=== PATIENT | female | born 1940 | race Asian ===

== ENCOUNTER 2019-01-02 22:34 | Emergency (ER) | payer MEDICARE, OTHER ==
[~2019-01-02] VITALS: Ht 157.5 cm; Wt 46.9 kg
[2019-01-02 22:42] VITALS: Ht 157.5 cm; Wt 46.9 kg
--- NOTE | 2019-01-03 01:04 | ERD ---
ER Documentation Chief Complaint Chief Complaint LUQ pain [id number] with nausea HPI This is a 78-year-old female with a history of hypertension who presents to the emergency room for evaluation of left flank pain for the past 6 months. According to the daughter the patient has had intermittent pain on and off for 6 months however it is worse today. She has some associated nausea but no vomiting and no diarrhea. There is no fever chills painful urination or frequent urination associated with this. The patient came to the ER for evaluation. ROS All systems reviewed and are negative except as per history of present illness. PMhx/Soc History of Surgery: Yes (CHOLECYSTECTOMY) Anesthesia Reaction: No Hx Neurological Disorder: No Hx Respiratory Disorders: No Hx Cardiac Disorders: Yes (HTN) Hx Psychiatric Problems: No Hx Miscellaneous Medical Probl: No Hx Alcohol Use: No Hx Substance Use: No Hx Tobacco Use: No Smoking Status: Never smoker Physical Exam Vitals Vital Signs Date Temp Pulse Resp B/P (MAP) Pulse Ox O2 O2 Flow FiO2 Time Delivery Rate 01/02/19 72 14 161/72 98 Room Air 23:45 (101) 01/02/19 97.1 75 20 172/81 99 22:42 (111) Physical Exam INITIAL VITAL SIGNS: Reviewed by me GENERAL: The patient is well developed and appropriate for usual state of health in no apparent distress HEENT: Pupils equal, round, and reactive to light. EOMI. There is no scleral icterus. NECK: C-spine is soft and supple, there is no meningismus. There is no cervical lymphadenopathy. LUNGS: Clear to auscultation bilaterally. There are no rales, wheezes or rhonchi. HEART: Regular rate and rhythm, no murmurs, clicks, rubs or gallops. ABDOMEN: Mild left-sided CVAT, otherwise soft, non-tender, non-distended. There are bowel sounds in all four quadrants. No rebound or guarding. EXTREMITIES: There is no peripheral cyanosis or edema. No focal swelling or erythema. NEUROLOGICAL: The patient moves all four extremities with 5/5 strength. Cranial nerves II - XII are intact. Normal gait. Alert and oriented SKIN: There is no apparent rash or petechiae. HEME/LYMPHATIC: There is no evidence of excessive bruising or lymphedema. PSYCHIATRIC: The patient does not appear anxious or depressed. Result Diagram: 01/02/19 2348 01/02/19 2348 Results 24 hrs Laboratory Tests Test 01/02/19 23:48 01/02/19 23:59 White Blood Count 6.2 10^3/ul Red Blood Count 4.16 10^6/ul Hemoglobin 12.5 g/dl Hematocrit 38.6 % Mean Corpuscular Volume 92.8 fl Mean Corpuscular Hemoglobin 30.0 pg Mean Corpuscular Hemoglobin Concent 32.4 g/dl Red Cell Distribution Width 12.4 % Platelet Count 215 10^3/UL Mean Platelet Volume 10.2 fl Immature Granulocytes % 0.200 % Neutrophils % 45.3 % Lymphocytes % 40.4 % Monocytes % 9.0 % Eosinophils % 4.5 % Basophils % 0.6 % Nucleated Red Blood Cells % 0.0 /100WBC Immature Granulocytes # 0.010 10^3/ul Neutrophils # 2.8 10^3/ul Lymphocytes # 2.5 10^3/ul Monocytes # 0.6 10^3/ul Eosinophils # 0.3 10^3/ul Basophils # 0.0 10^3/ul Nucleated Red Blood Cells # 0.0 10^3/ul Sodium Level 141 mmol/L Potassium Level 4.1 mmol/L Chloride Level 102 mmol/L Carbon Dioxide Level 29 mmol/L Anion Gap 10 Blood Urea Nitrogen 16 mg/dl Creatinine 0.85 mg/dl Est Glomerular Filtrat Rate mL/min mL/min Glucose Level 107 mg/dl Calcium Level 9.4 mg/dl Total Bilirubin 0.2 mg/dl Direct Bilirubin 0.00 mg/dl Indirect Bilirubin 0.2 mg/dl Aspartate Amino Transf (AST/SGOT) 28 IU/L Alanine Aminotransferase (ALT/SGPT) 21 IU/L Alkaline Phosphatase 35 IU/L Total Protein 8.3 g/dl Albumin 4.5 g/dl Globulin 3.80 g/dl Albumin/Globulin Ratio 1.18 Lipase 83 U/L Urine Color STRAW Urine Clarity CLEAR Urine pH 8.0 Urine Specific [place] 1.005 Urine Ketones NEGATIVE mg/dL Urine Nitrite NEGATIVE mg/dL Urine Bilirubin NEGATIVE mg/dL Urine Urobilinogen NEGATIVE mg/dL Urine Leukocyte Esterase NEGATIVE Shanna/ul Urine Hemoglobin NEGATIVE mg/dL Urine Glucose NEGATIVE mg/dL Urine Total Protein NEGATIVE mg/dl Procedures/MDM CT abdomen pelvis without contrast: Subtle infiltration of the central small bowel mesentery with minimal associated mesenteric lymphadenopathy. This is nonspecific, but might reflect a reactive process related to an adjacent enteritis, a panniculitis, or possibly lymphedema related to a neoplastic process such as lymphoma. Status post cholecystectomy. No obstructive uropathy or urinary stone. Normal appendix. Multiple right ovarian cysts measuring up to 2.8 cm. Further evaluation with ultrasound is recommended. Moderate atherosclerotic calcifications. This 78-year-old female presents to the ER for evaluation of left flank pain. On my exam she is afebrile and nontoxic-appearing. She did have mild tenderness to palpation and lab work was obtained as well as a CT. Lab work is clear, urine is clear, CT does show some lymphadenopathy which is nonspecific. The patient does not have any signs of infectious colitis. The patient will be given medicines to control her pain and she was given a copy of her CAT scan finding and was advised to follow-up with gastroenterology for possible colonoscopy if her symptoms continue. Differential diagnoses entertained was broad with potential high acuity. Patient has been evaluated for appendicitis, cholecystitis, and other high risk medical and surgical causes of abdominal pain. Ultimately the patient's evaluation is nondiagnostic. Based on the patient's lack of risk factors, as well as the patient's clinical, laboratory, and imaging data, the patient appears to be low risk for these high risk causes of abdominal pain. Departure Diagnosis: Primary Impression: Abdominal pain Additional Impression: Enteritis Condition: THEO Shipman DO Jan 03, 2019 01:04
[2019-01-03] MEDS ORDERED: ACET1TAB40 PO (01:05)
[2019-01-03 01:10] VITALS: BP 133/67; PULSE 67; RESP 18
== END 2019-01-03 01:24 | disposition home or self-care (01) ==
LOC: E/R 22:34
DX: K52.9 Noninfective gastroenteritis and colitis, unspecified (principal); I10 Essential (primary) hypertension
CPT/HCPCS: 36415; 74176; 80053; 81003; 83690; 85025

== ENCOUNTER 2019-02-18 12:58 | Emergency (ER) | payer MEDICARE, OTHER ==
[~2019-02-18] VITALS: Ht 162.6 cm; Wt 65.0 kg
[~2019-02-18 12:58] MED LIST: ACET1TAB40 PO; ACET500C5 PO; ALEN70TA5 ORAL; AMLO-147 ORAL; ATOR10TA65 PO; LACT10SO53 ORAL; LIDO700A45 TD; PANT40TA4 ORAL; PRAV20TA2 ORAL
[2019-02-18 13:09] VITALS: Ht 162.6 cm; Wt 65.0 kg
[2019-02-18] MEDS ORDERED: ACETAMINOPHEN 500 MG TAB PO STA (14:19)
[2019-02-18 14:45] VITALS: BP 142/56; PULSE 75; RESP 16
== END 2019-02-18 14:46 | disposition home or self-care (01) ==
LOC: E/R 12:58
DX: S00.83XA Contusion of other part of head, initial encounter (principal); I10 Essential (primary) hypertension; S29.001A Unspecified injury of muscle and tendon of front wall of thorax, initial encounter; V49.50XA Passenger injured in collision with unspecified motor vehicles in traffic accident, initial encounter
CPT/HCPCS: 70450; 71045

== ENCOUNTER 2019-02-20 18:40 | Inpatient (IN) | payer MEDICARE, OTHER ==
[~2019-02-20] VITALS: Ht 147.3 cm; Wt 46.7 kg
[~2019-02-20 18:40] MED LIST changes: -ACET1TAB40 PO; -ACET500C5 PO
[2019-02-20] MEDS ORDERED: ONDANSETRON 4 MG INJ IV STA ×2 (19:23→21:26)
[2019-02-20] MEDS ORDERED: morphine 4 MG/ML VIAL IV STA ×2 (19:23→21:26)
[2019-02-20] MEDS ORDERED: SOD CHLORIDE 0.9% 100 ML ONE (20:32)
[2019-02-20] MEDS ORDERED: IOHEXOL 100 ML ONE (20:32)
[2019-02-20] MEDS ORDERED: NACL 0.9% 3 ML SYG IV SCH (22:30)
[2019-02-20] MEDS ORDERED: HYDROCODONE/APAP (5/325) TAB PO ONE (22:30)
[2019-02-20] MEDS ORDERED: ONDANSETRON 4 MG INJ IV PRN ×2 (22:30)
[2019-02-20] MEDS ORDERED: morphine 2 MG INJ IV PRN (22:30)
[2019-02-20] MEDS ORDERED: BISACODYL (EC) 5 MG TAB PO PRN (22:30)
[2019-02-20] MEDS ORDERED: ACETAMINOPHEN 325 MG TAB PO PRN ×2 (22:30)
[2019-02-20] MEDS ORDERED: HYDROCODONE/APAP (5/325) TAB PO PRN (22:30)
[2019-02-20] MEDS ORDERED: DOCUSATE SODIUM 100 MG CAP PO PRN (22:30)
[2019-02-21 00:10] VITALS: Ht 147.3 cm; Wt 46.7 kg
[2019-02-21 00:11] VITALS: BP 157/68; PULSE 77; RESP 18
[2019-02-21] MEDS ORDERED: HYDROmorphONE 0.5 MG/0.5 ML SYG IV PRN (01:00)
[2019-02-21] MEDS ORDERED: HYDROCODONE/APAP (7.5/325) TAB PO PRN (02:00)
[2019-02-21 04:00] VITALS: BP 155/68; PULSE 75; RESP 18
[2019-02-21 07:07] VITALS: BP 144/65; PULSE 68; RESP 19
[2019-02-21] MEDS: AMLODIPINE 10 MG TAB PO SCH (08:16)
[2019-02-21] MEDS: PANTOPRAZOLE (EC) 40 MG TAB PO SCH (08:17)
[2019-02-21] MEDS: LACTULOSE 30ML CUP PO SCH ×2 (08:17→08:32)
[2019-02-21] MEDS ORDERED: PRAVASTATIN SODIUM ORAL SCH (09:00)
[2019-02-21] MEDS ORDERED: LACTULOSE ORAL SCH (09:00)
[2019-02-21] MEDS ORDERED: traMADol 50 MG TAB PO PRN (10:00)
[2019-02-21] MEDS ORDERED: KETOROLAC 15 MG INJ IV PRN (10:00)
[2019-02-21] MEDS ORDERED: SOD CHLORIDE 0.9% 500 ML IV ONE (10:00)
[2019-02-21] MEDS ORDERED: METOCLOPRAMIDE 10 MG INJ IV PRN (10:30)
[2019-02-21 15:26] VITALS: BP 141/65; PULSE 82; RESP 20
[2019-02-21 19:24] VITALS: BP 155/66; PULSE 89; RESP 20
[2019-02-21] MEDS: ATORVASTATIN 10 MG TAB PO SCH (20:11)
[2019-02-22] VITALS: BP 120/60; PULSE 69; RESP 20
[2019-02-22 04:00] VITALS: BP 128/68; PULSE 73; RESP 21
[2019-02-22 08:07] VITALS: BP 145/63; PULSE 68; RESP 18
[2019-02-22] MEDS: LACTULOSE 30ML CUP PO SCH (08:24)
[2019-02-22] MEDS: AMLODIPINE 10 MG TAB PO SCH (08:24)
[2019-02-22] MEDS: PANTOPRAZOLE (EC) 40 MG TAB PO SCH (08:24)
[2019-02-22] MEDS: LIDOCAINE 5% PATCH TD SCH (08:25)
[2019-02-22 11:42] VITALS: BP 134/56; PULSE 74; RESP 18
[2019-02-22 16:09] VITALS: BP 147/69; PULSE 79; RESP 18
[2019-02-22 20:00] VITALS: BP 138/64; PULSE 85; RESP 19
[2019-02-22] MEDS: ATORVASTATIN 10 MG TAB PO SCH (20:14)
[2019-02-23] VITALS: BP 146/70; PULSE 84; RESP 20
[2019-02-23 04:00] VITALS: BP 135/67; PULSE 85; RESP 20
[2019-02-23 07:26] VITALS: BP 134/65; PULSE 72; RESP 20
[2019-02-23] MEDS: LACTULOSE 30ML CUP PO SCH (08:32)
[2019-02-23] MEDS: PANTOPRAZOLE (EC) 40 MG TAB PO SCH (08:32)
[2019-02-23] MEDS: AMLODIPINE 10 MG TAB PO SCH (08:32)
[2019-02-23] MEDS: LIDOCAINE 5% PATCH TD SCH (08:33)
[2019-02-23 11:12] VITALS: BP 134/62; PULSE 78; RESP 20
[2019-02-23 15:12] VITALS: BP 124/59; PULSE 77; RESP 20
[2019-02-23 20:00] VITALS: BP 144/67; PULSE 83; RESP 18
[2019-02-23] MEDS: ATORVASTATIN 10 MG TAB PO SCH (21:19)
[2019-02-24 04:44] VITALS: BP 148/71; PULSE 70; RESP 19
[2019-02-24 07:30] VITALS: BP 137/75; PULSE 71; RESP 18
[2019-02-24] MEDS: LIDOCAINE 5% PATCH TD SCH (09:04)
[2019-02-24] MEDS: AMLODIPINE 10 MG TAB PO SCH (09:05)
[2019-02-24] MEDS: PANTOPRAZOLE (EC) 40 MG TAB PO SCH (09:05)
[2019-02-24] MEDS: LACTULOSE 30ML CUP PO SCH (09:05)
[2019-02-24 12:02] VITALS: BP 143/68; PULSE 77; RESP 18
[2019-02-24 16:43] VITALS: BP 135/61; PULSE 85; RESP 18
== END 2019-02-24 17:50 | disposition home or self-care (01) | DRG 185 ==
LOC: E/R 18:40 → TEL 22:27 → OBSVTOIN 02-22 16:28
PROVIDERS: ADMIT Family Medicine; ATTEND Internal Medicine
DX: S22.41XA Multiple fractures of ribs, right side, initial encounter for closed fracture (principal); E04.1 Nontoxic single thyroid nodule; I10 Essential (primary) hypertension; E78.5 Hyperlipidemia, unspecified; M81.0 Age-related osteoporosis without current pathological fracture; K21.9 Gastro-esophageal reflux disease without esophagitis; R11.2 Nausea with vomiting, unspecified; V43.62XA Car passenger injured in collision with other type car in traffic accident, initial encounter; Y93.89 Activity, other specified; Y92.410 Unspecified street and highway as the place of occurrence of the external cause; Y99.8 Other external cause status
CPT/HCPCS: 36415; 71045; 71275; 74181; 74183; 76705; 80048; 80053; 83735; 84145; 84439; 84443; 84481; 84484; 85025; 93005; 96374; 96375; 96376; 97110; 97116; 97162; 97166; 97530; G0378; J1885; J2270; J2405; J2765; J7040; Q9967